=== PATIENT | male | born 1935 | race Caucasian/White ===

== ENCOUNTER 2018-10-15 21:21 | Inpatient (IN) ==
[2018-10-15 23:04] LABS: BASO# 0.03 X1000 (0.0-0.2); BASO% 0.2 % (0.0-0.8); EOS# 0.08 X1000 (0.0-0.7); EOS% 0.6 % (0.0-10.0); HEMATOCRIT 39.5 % (42.0-52.0); HEMOGLOBIN 12.9 g/dL (14.0-18.0); IMM GRAN# 0.06 X1000 (0.0-0.04); IMM GRAN% 0.4 % (0.0-0.5); LYMPH# 0.99 X1000 (1.2-3.4); LYMPH% 7.2 % (20.5-51.1); MCH 31.1 PG (27-31); MCHC 32.7 g/dL (33-37); MCV 95.2 FL (81-99); MONO# 0.64 X1000 (0.11-0.59); MONO% 4.6 % (1.7-9.3); MPV 9.5 FL (7.4-10.4); NEUT# 11.97 X1000 (1.4-6.5); PLT 255 X1000 (130-400); RBC 4.15 XMIL (4.7-6.1); RDW 13.9 % (11.5-14.5); WBC 13.77 X1000 (4.8-10.8)
[2018-10-15 23:24] LABS: ALB/GLOB RATIO 1.7; ALBUMIN 3.7 g/dL (3.5-5.0); CALCIUM 8.8 mg/dL (8.8-10.2); CREATININE 1.9 mg/dL (0.7-1.2); TOTAL BILIRUBIN 0.16 mg/dL (0.20-1.00); TOTAL PROTEIN 5.9 g/dL (6.3-8.3)
[2018-10-15] MEDS ORDERED: LOVENOX 1 MG/KG SUBQ ONE (23:32)
[2018-10-15] MEDS ORDERED: LOVENOX SUBQ ONE (23:45)
[2018-10-16] MEDS ORDERED: ZOFRAN IV PRN (01:19)
[2018-10-16] MEDS ORDERED: TYLENOL PO PRN (01:19)
[2018-10-16] MEDS ORDERED: RESTORIL PO ONE (01:27)
[2018-10-16] MEDS ORDERED: NS 1,000 ML IV SCH (01:30)
--- NOTE | 2018-10-16 02:29 | HISTORY AND PHYSICAL ---
CHIEF COMPLAINT: Near syncope. HISTORY OF PRESENT ILLNESS: This is an 83-year-old male who has end-stage dementia. He only recognizes close family members. He is disoriented to place and situation as well as time. His son lives with him. He states that his dad got up and went to the bathroom, was in there longer than usual, and he found him kind of slumped to the side. He was very diaphoretic. He had to shake him and call his name 3 times for him to arouse. He began vomiting after that. On arrival to the emergency room the patient was bradycardic. While I was in the room examining the patient his heart rate dropped to 54, fairly consistent with a vasovagal episode. However, the patient will be admitted in observation status for further evaluation and treatment. PAST MEDICAL HISTORY: Dementia, diabetes mellitus type 2, hyperlipidemia, hypertension and arthritis.. PREVIOUS SURGICAL HISTORY: Cataract removal, right eye, and I believe a right wrist fracture fixation at some point in the past. ALLERGIES: No known drug allergies. HOME MEDICATIONS: Actos 30 mg p.o. at bedtime, donepezil 10 mg p.o. at bedtime, simvastatin 20 mg p.o. at bedtime, lisinopril 5 mg p.o. at bedtime, glimepiride 4 mg p.o. daily, prazosin 5 mg p.o. at bedtime, prazosin 2 mg p.o. daily, Januvia 50 mg p.o. daily. FAMILY HISTORY: I believe there are cardiac issues on his maternal side of the family and I believe his father from a CVA. SOCIAL HISTORY: Lives with his son. No tobacco, alcohol or illicit drugs. REVIEW OF SYSTEMS: Review of systems could not be conducted with the patient. He states he has no complaints, unsure why he is at the hospital. PHYSICAL EXAMINATION: VITAL SIGNS: Temperature 97.4, pulse mid 50s to 66, blood pressure 107/56, oxygen saturation 95% on room air. GENERAL: A pleasantly confused 83-year-old male lying in the ER stretcher, well-developed, well- nourished, looks stated age. Oriented only to person. In no acute distress. HEENT: Head is atraumatic, normocephalic. Pupils equal, round, reactive to light. Extraocular eye movements intact. Sclerae are anicteric. Conjunctivae are pink. Oral mucosa is dry. NECK: Supple. No JVD. No thyromegaly. Trachea is midline. No cervical lymphadenopathy. CARDIAC: S1, S2 appreciated. No murmurs, gallops or rubs. LUNGS: Clear to auscultation bilaterally. No rhonchi, wheeze or rales. Symmetric rise and fall with respirations. ABDOMEN: Soft, nondistended, nontender. Bowel sounds present in all 4 quadrants. Normoactive. No pulsatile mass, no organomegaly. NEUROLOGICAL: Oriented to person, awake, alert. No focal motor deficits, otherwise nonfocal examination. EXTREMITIES: No clubbing, cyanosis or edema. One-plus pedal pulses. GENITOURINARY: No bladder distention. Patient voids. Otherwise clear. DIAGNOSTIC DATA: Chest x-ray: No infiltrate, no edema, no effusions. LABORATORY DATA: WBC 13.77, hemoglobin 12.9, hematocrit 39.5, platelet count 255,000. Sodium 143, potassium 5, chloride 102, carbon dioxide 22, BUN 38, creatinine 1.9, glucose 242. Plasma lactate 2.3. D-dimer 1.00. ASSESSMENT AND PLAN: 1. Probable vasovagal episode. As noted above, the patient became minimally responsive, was diaphoretic, weak and nauseous. Will get an echocardiogram. Zosyn as needed for any further nausea. Telemetry overnight. 2. Acute kidney injury on probable chronic kidney disease. The last known creatinine for the patient was 1.3 in 2011, but he does appear to be somewhat volume-depleted. Will give gentle fluid hydration, recheck volume status tomorrow morning. 3. Hypertension. Will hold lisinopril to evaluate the patient's creatinine. Continue his other medications. 4. Diabetes mellitus type 2 with hyperglycemia. Check hemoglobin A1c. Hold Actos as well as other oral antihyperglycemics. Sliding scale insulin and fingerstick blood sugars q.a.c. and h.s. 5. Elevated D-dimer. Patient was given 1 mg/kg of Lovenox in the emergency room. He did not have any symptoms such as shortness of breath or pain. He has been treated tonight. Will rehydrate overnight. The patient's GFR is presently still over 30. Will leave to primary team to possibly order CT angiogram of chest to completely rule out pulmonary embolism or possibly a VQ scan. 6. Further recommendations per patient clinical course. Dictated by MARILIA Alvarez for Omid Reed MD cc: MARILIA Alvarez MD
[2018-10-16 02:30] LABS: HEMOGLOBIN A1C 5.8 % (4.8-6.0)
[2018-10-16] MEDS: HUMALOG SUBQ SCH ×4 (06:46→20:36)
--- NOTE | 2018-10-16 07:26 | EKG Report ---
Test Performed on : 10/16/2018 07:14:36 AM Test Reason : chest pain Blood Pressure : / mmHG Vent. Rate : 062 BPM Atrial Rate : 062 BPM P-R Int : 178 ms QRS Dur : 080 ms QT Int : 484 ms P-R-T Axes : 059 055 041 degrees QTc Int : 491 ms Normal sinus rhythm. Prolonged QT Abnormal ECG When compared with ECG of 15-OCT-2018 21:30, (Unconfirmed) Sinus rhythm. has replaced Junctional rhythm. Confirmed by Jose ASHTON, Valeriy Rooney ([id number]) on 10/16/2018 5:09:50 PM
--- NOTE | 2018-10-16 07:46 | EKG Report ---
Test Performed on : 10/15/2018 9:30:46 PM Test Reason : SYNCOPE Blood Pressure : / mmHG Vent. Rate : 070 BPM Atrial Rate : 072 BPM P-R Int : 000 ms QRS Dur : 072 ms QT Int : 440 ms P-R-T Axes : 000 031 012 degrees QTc Int : 475 ms Accelerated Junctional rhythm. Nonspecific ST and T wave abnormality Abnormal ECG When compared with ECG of 30-MAR-2012 18:23, Junctional rhythm. has replaced Sinus rhythm. Unconfirmed Result
--- NOTE | 2018-10-16 07:59 | Diag Imaging Result Doc PS360 ---
EXAM: CHEST-1 VIEW 10/15/2018 HISTORY: syncope TECHNIQUE: AP upright portable at 2208 COMMENT: There is no evidence of acute cardiac or pulmonary disease. There are minimal atelectatic opacities in the left lower lobe. Otherwise, the appearance the chest has not changed appreciably since 03/30/2012. IMPRESSION: Left lower lobe atelectasis. Electronically signed by Earle Robledo 10/16/2018 7:56 AM
[2018-10-16 08:20] LABS: CALCIUM 8.9 mg/dL (8.8-10.2); CREATININE 1.5 mg/dL (0.7-1.2); MAGNESIUM 2.3 mg/dL (1.5-2.7); POTASSIUM 4.3 mmol/L (3.5-5.1)
[2018-10-16] MEDS: HEPARIN SUBQ SCH ×2 (09:24→16:14)
[2018-10-16] MEDS: MINIPRESS PO SCH (09:25)
--- NOTE | 2018-10-16 16:02 | PROGRESS NOTE ---
DATE: 10/16/2018 SUBJECTIVE: Today, Mr. Powell refers to be feeling a whole lot better. He feels stronger. No more dizziness. No sweating. The sons were at the bedside. The one who normally lives with him gives a history that Mr. Powell has been having dizziness every now and then with some tunnel vision and blurry vision, which usually gets better with something sweet. Looking at is A1c, which is 5.8, it is reasonable to assume that he has been having recurrent episodes of hypoglycemia. He is currently on 3 different types of oral hypoglycemic agents (pioglitazone, glimepiride and sitagliptin). In somebody who has some renal impairment, I think this is too many, too much medications to control his glucose, and it is very possible that it has been causing recurrent near syncope as a result of hypoglycemia. Mr. Powell came in yesterday because of a similar episode. He went to use the restroom and then came back, went back again. After 2 trips, he became very short of breath, pale, sweaty, and they called their emergency team, and he was brought in. His vitals also seem to have been compromised. His blood pressure on supine was 124/45. Upon standing, it went down to 94/54. His pulse also went from 81 in supine to 109 in standing, so he was remarkably orthostatic positive. OBJECTIVE: His current vitals: Blood pressure 127/51, pulse of 59, respiration is 18, temperature 97.7 degrees. On general exam, Mr. Powell is an 83-year-old gentleman. He is in bed, no distress. Mucosa is pink, slightly dry. Anicteric. Acyanotic. Neck is supple. Chest: Good air entry bilateral. There were no crepitations, no rhonchi. Cardiovascular: Regular rate and rhythm. Abdomen is soft, nontender. Bowel sounds present. Extremities: No pedal edema. Central Nervous System: Patient is awake, alert, oriented. There is no focal neurological deficit. LABORATORY DATA: There is no CBC for today. Chemistry shows that creatinine is down to 1.5 from 1.9 on admission, glucose was 114 early on today. ASSESSMENT: 1. Syncope at home, presumably a combination of orthostatic hypotension and possibly hypoglycemic episode. 2. Clinical volume depletion. 3. Acute on chronic renal failure secondary to #2. 4. Diabetes mellitus with presenting A1c of 5.8. I think this is too tight of a glucose control for this elderly geriatric patient. I have advised that, whenever the patient is stable for discharge, he goes on just sitagliptin for now and withhold the glimepiride as well as the pioglitazone and review with his primary care doctor. 5. Hypotension on presentation, presumed most likely due to volume depletion as well as blood pressure medication (Minipress). Blood pressure has come back to be barely normal, so I will withhold the 5 mg of Minipress and just use the 2 mg. I have explained my findings and plan with the family who were at the bedside. I think if tomorrow Mr. Powell is doing well and has been fully fluid resuscitated, we can discharge him. cc: Chris Howard MD
[2018-10-16] MEDS: 1/2 NS + KCL 20 MEQ 1,000 ML IV SCH (17:12)
--- NOTE | 2018-10-16 20:34 | ECHO REPORT ---
ORDER DATE: 10/16/2018 REFERRING PHYSICIANS: Hospitalist service. INDICATION: An 83-year-old male with syncope. M-MODE MEASUREMENTS: Left ventricle end diastole: 4.3. Left ventricle end systole: 1.9. Posterior wall: 0.9. Interventricular septum: 0.9. Left atrium: 3.7. Aortic diameter: 2.7. SUMMARY OF 2-DIMENSIONAL IMAGIN. Left ventricular function is normal. Ejection fraction is 62%. No wall motion abnormality. 2. The aortic valve has 3 cusps. They open normally. Color flow mapping unremarkable. 3. The mitral valve looks normal. Color flow mapping unremarkable. 4. Pulsed wave Doppler of mitral inflow is normal. 5. Tissue Doppler of septal and lateral mitral annulus averages 8 cm. 6. Pulmonary venous flow is normal. 7. There is no diastolic dysfunction. 8. The inferior vena cava is well visualized. 9. The tricuspid valve shows a trivial degree of regurgitation. Pulmonary pressure is estimated to be in the range of 27 to 32 mmHg. 10.The pulmonic valve is unremarkable. 11.The aortic valve shows a very mild degree of regurgitation. 12.The right-sided chambers are not dilated. 13.The left atrium is mildly enlarged. 14.There is no pericardial effusion, no mass, and no thrombus. Clinical correlation recommended. cc: MD Deejay Galloway CRNP MTDD
[2018-10-16] MEDS ORDERED: MELATONIN PO SCH (21:00)
[2018-10-16] MEDS ORDERED: ZOCOR PO SCH (21:00)
[2018-10-16] MEDS ORDERED: ARICEPT PO SCH (21:00)
[2018-10-16] MEDS ORDERED: MINIPRESS PO SCH (21:00)
[2018-10-17] MEDS: HEPARIN SUBQ SCH (05:13)
[2018-10-17] MEDS: HUMALOG SUBQ SCH ×2 (06:48→10:48)
[2018-10-17] MEDS: 1/2 NS + KCL 20 MEQ 1,000 ML IV SCH (06:48)
[2018-10-17 07:29] LABS: BASO# 0.03 X1000 (0.0-0.2); BASO% 0.4 % (0.0-0.8); EOS# 0.53 X1000 (0.0-0.7); EOS% 6.9 % (0.0-10.0); HEMATOCRIT 38.2 % (42.0-52.0); HEMOGLOBIN 12.5 g/dL (14.0-18.0); IMM GRAN# 0.02 X1000 (0.0-0.04); IMM GRAN% 0.3 % (0.0-0.5); LYMPH# 2.05 X1000 (1.2-3.4); LYMPH% 26.8 % (20.5-51.1); MCH 31.2 PG (27-31); MCHC 32.7 g/dL (33-37); MCV 95.3 FL (81-99); MONO# 0.55 X1000 (0.11-0.59); MONO% 7.2 % (1.7-9.3); MPV 9.5 FL (7.4-10.4); NEUT# 4.48 X1000 (1.4-6.5); NEUT% 58.4 % (42.2-75.2); PLT 246 X1000 (130-400); RBC 4.01 XMIL (4.7-6.1); WBC 7.66 X1000 (4.8-10.8)
[2018-10-17 07:53] LABS: IRON SATURATION 56 %; TIBC 218 ug/dL; TOTAL IRON 122 ug/dL (53-167); UNBOUND IRON 96 ug/dL (112-346)
[2018-10-17 07:56] LABS: AGAP 11; ALBUMIN 3.1 g/dL (3.5-5.0); BUN 24 mg/dL (8-22); CALCIUM 9.2 mg/dL (8.8-10.2); CHLORIDE 107 mmol/L (98-107); COSMO 285; CREATININE 1.1 mg/dL (0.7-1.2); ESTIMATED GFR > 60; GLUCOSE 98 mg/dL (70-104); PHOSPHORUS 2.7 mg/dL (2.7-4.5); POTASSIUM 4.5 mmol/L (3.5-5.1); SODIUM 141 mmol/L (136-145); TCO2 23 mmol/L (25-35)
[2018-10-17 08:06] LABS: FERRITIN 339 ng/mL (30-400)
[2018-10-17] MEDS: MINIPRESS PO SCH (08:50)
--- NOTE | 2018-10-17 09:13 | PROGRESS NOTE ---
DATE: 10/17/2018 INCOMPLETE REPORT-- DICTATION STARTS HERE. SUBJECTIVE: This morning Mr. Powell refers to be feeling a whole lot better. Feeling stronger. No more nausea, no coffee-ground emesis. Has not had any bowel movement. She has she got 2 units of PRBC yesterday. Wrong patient. INCOMPLETE REPORT-- DICTATION ENDS HERE. cc: Chris Howard MD
[2018-10-17 11:32] VITALS: BP 118/39
--- NOTE | 2018-10-18 13:09 | DISCHARGE SUMMARY ---
ADMISSION DATE: 10/17/2018 DISCHARGE DATE: 10/17/2018 DISPOSITION: Home. FOLLOWUP: Dr. Ceasar Li. CONSULTATIONS DURING THIS ADMISSION: None. IMAGING STUDIES OF SIGNIFICANCE: 1. A chest x-ray shows left lower lobe atelectasis. 2. An echocardiogram showed ejection fraction of 65%. No major valvular abnormality. 3. EKGs were unremarkable. ADMISSION DIAGNOSES: 1. Probable vasovagal episode. 2. Acute on chronic kidney injury. 3. Hypertension. 4. Diabetes. DIAGNOSES AT THE TIME OF DISCHARGE: 1. Syncope at home secondary to orthostatic hypotension compounded with possible hypoglycemic episode. 2. Clinical volume depletion, improved. 3. Acute on chronic renal failure. 4. Diabetes mellitus with presenting A1c of 5.8. 5. Suspicion of possible ongoing recurrent hypoglycemia episode. 6. Hypotension on presentation, improved. DISCHARGE MEDICATIONS: 1. Donepezil 10 mg p.o. at bedtime. 2. Simvastatin 20 mg p.o. at bedtime. 3. Januvia 50 mg p.o. daily. 4. Lisinopril 2.5 p.o. daily. MEDICATIONS THAT HAVE BEEN WITHHELD: 1. Pioglitazone. 2. Glimepiride. 3. Prazosin. The dose of lisinopril has been decreased. The patient is supposed to review with his primary care doctor before starting these medications that have been withheld. PRESENTING COMPLAINT: Syncope. HISTORY OF PRESENTING COMPLAINT: Mr. Powell is an 83-year-old gentleman who has a history of diabetes, dementia, dyslipidemia, hypertension, presented to the emergency department. The patient had slumped over, was quite unresponsive, extremely diaphoretic, was brought to the emergency department, was found to have a blood pressure that had dropped to about 54 which was concerning for vasovagal syncope, so patient was admitted. HOSPITAL COURSE: The patient was evaluated initially with orthostatic vitals and it did reveal that his blood pressure supine systolic was 124 and his diastolic was 45, and standing, his systolic dropped to 94. Pulse changes, supine was 81 and standing was 109. These vitals were consistent with orthostatic hypotension. During the hospital course, Mr. Powell was adequately fluid resuscitated. His blood pressure medications were all withheld as well as his oral hypoglycemic agent. An A1c was done which revealed 5.8. We presume that Mr. Powell's blood glucose have been too strictly managed and that occasionally we think he has been going hypoglycemic, and the son who lives with him also tells us that every now and then, Mr. Powell will have blurry vision and tunnel and becomes slightly irritated and when he eats or drinks something sweet, then he just feels better. We have advised that he withhold the glimepiride which is a long acting sulfonylurea, as well as the pioglitazone for now and only use Januvia for glucose control. We have also withheld his prazosin since he was orthostatic positive and also reduced his lisinopril. I have gone over all these changes with him and with the son who was at the bedside at the time of the encounter. Today Mr. Powell refers to be feeling a whole lot better. He has been up walking around. He is not dizzy. He has no falling. He is completely asymptomatic. His creatinine has actually normalized at 1.1, so we think it was an acute kidney injury. He is being discharged in more stable condition. All the discharge instructions have been discussed with him and with the 2 sons who were at the bedside. One of the sons assures me that the patient has an appointment with his primary care doctor on 10/21/2018. TIME SPENT FOR DISCHARGE: 35 minutes. cc: MD Ceasar You MD
--- NOTE | 2018-10-21 16:11 | PROVIDER DOCUMENTATION ---
This chart was entered by Mya Olmos Scribe, acting as scribe for Catarino Lujan MD. HPI-Syncope/Dizziness - General Chief Complaint: Syncope Stated Complaint: near syncope Time Seen by Provider: 10/15/18 21:30 Source: patient, family Allergies/Adverse Reactions: Patient Allergies Allergy/AdvReac Type Severity Reaction Status Date / Time No Known Allergies Allergy Unverified 10/15/18 21:49 Home Medications: Home Medication List Medication Instructions Recorded Confirmed Last Taken Type Aspirin 81 mg PO DAILY 03/31/12 03/31/12 Unknown History Donepezil HCl 10 mg PO HS 03/31/12 03/31/12 Unknown History Glimepiride 4 mg PO DAILY 03/31/12 03/31/12 Unknown History Glucosamin,[id number]-[id number] 1 each PO BID 03/31/12 03/31/12 Unknown History [Glucoten Caplet] Lisinopril 5 mg PO DAILY 03/31/12 03/31/12 Unknown History Memantine [Namenda] 10 mg PO BID 03/31/12 03/31/12 Unknown History Metformin HCl [Metformin ER 500 mg PO DAILY 03/31/12 03/31/12 Unknown History Osmotic] [place]-3 Fatty Acids [Fish Oil] 1,000 mg PO BID 03/31/12 03/31/12 Unknown History Pioglitazone [Actos] 30 mg PO HS 03/31/12 03/31/12 Unknown History SIMVAstatin [Zocor] 40 mg PO QHS 03/31/12 03/31/12 Unknown History Prazosin [Minipress] 1 mg PO QHS #0 capsule 04/03/12 Unknown Rx - History of Present Illness-Syncope/Dizzy Nature of Presenting Problem: pt is a 83 yr old male dementia pt presenting via EMS with complaint of nausea, vomiting, weakness and syncope. pt son reports pt had been sitting on toilet for extended time having a bowel movement, when pt attempted to get up he was to weak to lift self, pt became diaphoretic, passed out and vomited on himself, no injury, pot did not fall. pt reports he feels fine now. son reports he appears his normal now. Prior Episodes: reports: single episode today Onset/Duration: reports: abrupt, this evening Timing: reports: resolved prior to arrival Position/Activity at time of episode: reports: sitting, standing (using bathroom) Symptoms prior to episode: reports: other (weakness) Context: reports: lost consciousness Loss of Consciousness: brief (seconds) Location of injury. (If syncope resulted in an injury.): reports: none Current Symptoms: reports: sweaty, vomiting. denies: chest pain Recently Seen Here or By Another Healthcare Provider: No Review of Systems - Adult - REVIEW OF SYSTEMS - ADULT Constitutional: reports: fatique. denies: chills, fever Eyes: reports: no symptoms reported Ears, Nose, Mouth & Throat: reports: no symptoms reported Cardiovascular: reports: syncope. denies: palpitations Respiratory: denies: cough, shortness of breath, wheezing Gastrointestinal: reports: vomiting. denies: abdominal pain, diarrhea, nausea Genitourinary: reports: no symptoms reported Musculoskeletal: reports: no symptoms reported Integumentary: reports: no symptoms reported Neurological: reports: dizziness/vertigo, syncope. denies: headache/migraines, seizure Psychiatric: reports: no symptoms reported Endocrine: reports: no symptoms reported Hematologic/Lymphatic: reports: no symptoms reported Allergic/Immunologic: reports: no symptoms reported All Other Systems: Reviewed and Negative Past History - Adult - PAST MEDICAL HISTORY-ADULT Review of Records: reports: Old Records Reviewed, Nursing Assessment Review, Medications Reviewed, Social history reviewed & non-contributory. Major Childhood Illnesses: reports: denies history Cardiovascular: reports: denies history Respiratory: reports: denies history Gastrointestinal: reports: denies history Obstetrical/Gynecological: reports: denies history Genitourinary: reports: denies history Musculoskeletal: reports: denies history Neurological: reports: denies history Endocrine/Immune: reports: denies history Other Conditions: reports: denies history - IMMUNIZATION STATUS Childhood Immunizations: See Nurse Assessment Flu Vaccine: See Nurse Assessment - FAMILY HISTORY Family History: reviewed, not pertinent - SOCIAL HISTORY Living Situation: family Physical Exam-General - PHYSICAL EXAM-ADULT Initial Vital Signs Reviewed: Yes - CONSTITUTIONAL General Appearance: alert, no apparent distress, other (pleasantly confused) - EYES Eyes: PERRL/EOMI - HEAD, EARS, NOSE, MOUTH & THROAT HENMT: normocephalic/atraumatic, moist mucous membranes, normal ENT inspection - NECK Neck: non-tender, full range of motion, supple, normal inspection - RESPIRATORY Respiratory: chest non-tender, lungs clear, normal breath sounds, no pleuratic chest pain, no respiratory distress, no accessory muscle use - CARDIOVASCULAR Cardiovascular: normal peripheral pulses, regular rate, rhythm, no edema - GASTROINTESTINAL (ABDOMEN) Abdominal Exam: normal bowel sounds, non tender, soft - LYMPHATIC Lymphatic: no adenopathy - MUSCULOSKELETAL Back Exam: normal inspection, no CVA tenderness, no vertebral tenderness Extremity: normal range of motion, non-tender, normal gait, normal inspection - SKIN Integumentary: normal color, normal turgor, warm/dry - PSYCHIATRIC Psych/Mental Status: normal mood/affect Progress - PLAN OF CARE/RESULTS Progress/Plan/Lab Results: Vital Signs - 8 hr 10/15/18 21:25 10/15/18 21:34 10/15/18 21:35 Temperature 97.4 F L Pulse Rate 74 68 63 Respiratory Rate 15 19 19 Blood Pressure 98/47 98/47 O2 Sat by Pulse Oximetry 94 L 96 10/15/18 21:40 10/15/18 21:50 10/15/18 22:00 Temperature Pulse Rate 66 64 66 Respiratory Rate 23 16 15 Blood Pressure O2 Sat by Pulse Oximetry 99 94 L 91 L 10/15/18 22:02 10/15/18 22:10 10/15/18 22:20 Temperature Pulse Rate 73 64 64 Respiratory Rate 25 H 18 17 Blood Pressure 90/47 O2 Sat by Pulse Oximetry 93 L 92 L 94 L 10/15/18 22:30 10/15/18 22:32 10/15/18 22:40 Temperature Pulse Rate 64 64 66 Respiratory Rate 11 L 15 12 Blood Pressure 107/56 O2 Sat by Pulse Oximetry 95 94 L 95 Laboratory Results - last 24 hr 10/15/18 10/15/18 10/15/18 22:15 22:15 22:15 WBC 13.77 H RBC 4.15 L Hgb 12.9 L Hct 39.5 L MCV 95.2 MCH 31.1 H MCHC 32.7 L RDW Std Deviation 13.9 Plt Count 255 MPV 9.5 Immature Gran % (Auto) 0.4 Neut % (Auto) 87.0 H Lymph % (Auto) 7.2 L [place] % (Auto) 4.6 Eos % (Auto) 0.6 Baso % (Auto) 0.2 Immature Gran # (Auto) 0.06 H Neut # (Auto) 11.97 H Lymph # (Auto) 0.99 L [place] # (Auto) 0.64 H Eos # (Auto) 0.08 Baso # (Auto) 0.03 D-Dimer, Quantitative 1.00 H Sodium 143 Potassium 5.0 Chloride 102 Carbon Dioxide 22 L Anion Gap 19 BUN 38 H Creatinine 1.9 H Estimated GFR/1.73 m2 34 BUN/Creatinine Ratio 20 Glucose 229 H POC Glucose Calculated Osmolality 301 Calcium 8.8 Total Bilirubin 0.16 L AST 17 ALT 14 Alkaline Phosphatase 81 Troponin T Total Protein 5.9 L Albumin 3.7 Globulin 2.2 Albumin/Globulin Ratio 1.7 Plasma Lactate 10/15/18 10/15/18 10/15/18 22:15 22:15 22:41 WBC RBC Hgb Hct MCV MCH MCHC RDW Std Deviation Plt Count MPV Immature Gran % (Auto) Neut % (Auto) Lymph % (Auto) [place] % (Auto) Eos % (Auto) Baso % (Auto) Immature Gran # (Auto) Neut # (Auto) Lymph # (Auto) [place] # (Auto) Eos # (Auto) Baso # (Auto) D-Dimer, Quantitative Sodium Potassium Chloride Carbon Dioxide Anion Gap BUN Creatinine Estimated GFR/1.73 m2 BUN/Creatinine Ratio Glucose POC Glucose 242 H D Calculated Osmolality Calcium Total Bilirubin AST ALT Alkaline Phosphatase Troponin T < 0.010 Total Protein Albumin Globulin Albumin/Globulin Ratio Plasma Lactate 2.3 H Orders Category Date Time Status CHEST-1 VIEW [RAD] Stat Exams 10/15/18 21:53 Taken CBC WITH DIFF [HEME] Stat Lab 10/15/18 22:15 Completed COMPREHENSIVE METABOLIC PANEL [CHEM] Stat Lab 10/15/18 22:15 Completed D-DIMER [COAG] Stat Lab 10/15/18 22:15 Completed LACTATE, PLASMA [CHEM] Stat Lab 10/15/18 22:15 Completed TROPONIN T Stat Lab 10/15/18 22:15 Completed Enoxaparin [Lovenox] Med 10/15/18 23:45 Discontinued 70 mg SUBQ NOW ONE EKG [EKG] Stat Ther 10/15/18 21:25 Ordered Result Diagrams: 10/15/18 22:15 10/15/18 22:15 - EKG 1 Time of EKG reading by physician:: 21:36 EKG Read and Signed by:: Catarino Lujan EKG Interpretation (*Must complete 3 of following elements*): Abnormal (non specific st and t wave abnormaility) Rate: 70 Rhythm: accelerated junctional rhythm [place]: normal QRS: normal [place] Interval: normal Departure - Departure Date of Disposition Decision: 10/15/18 Time of Disposition Decision: 23:44 DIAGNOSIS: Syncope and collapse, Elevated d-dimer Chronic renal insufficiency Qualifiers: Chronic kidney disease stage: unspecified stage Qualified Code(s): N18.9 - Chronic kidney disease, unspecified Disposition: ADMITTED INPATIENT 09 Certified Medical Emergency: Emergent Condition: Good - Critical Care Note This patient required my direct & personal management of CC.: No Attestation - Physician/ RASHAWN Attestation Patient care was provided by Advanced Practice Provider:: No The physician spent face to face time with patient:: Yes Advanced Practice Provider documentation review:: Supervising physician onsite and consulted in the evaluation and care of this patient. The physician did have a face to face encounter with the patient. This chart was documented by the indicated scribe, (Mya Olmos Scribe) and accurately reflects the services I performed and decisions made by , Catarino Lujan MD, as attested by the provider's signature.
== END 2018-10-17 13:35 | disposition home health service (06) | DRG 312 ==
LOC: ED 21:21 → 3N 21:21 → SUATTDRO 10-16 02:01
PROVIDERS: ATTEND Internal Medicine
CPT/HCPCS: 71010; 71045; 80048; 80053; 80069; 82607; 82728; 82746; 82948; 83036; 83540; 83550; 83605; 83735; 84443; 84484; 85025; 85379; 93005; 93010; 93306; 96372; 97162; 97530; 99285; A9270; J1644; J1650; J1815; J3480; J7030; XXXXX